=== PATIENT | male | born 1945 | race African-American/Black ===

== ENCOUNTER → 2017-03-22 | Outpatient (CLI) | payer BC | LOC: PAIN 07:50 → CAT 08:23 → PAIN 10:00 | DX: R10.9 Unspecified abdominal pain (principal) ==

== ENCOUNTER 2017-06-22 14:43 | Inpatient (IN) | payer BC, OTHER ==
[~2017-06-22] VITALS: Ht 170.2 cm; Wt 51.1 kg
--- NOTE | ~2017-06-22 | HC ---
[facility] [address] [address] CONSULTATION Name: JUAN LUIS HENAO Max Room #: 438-P ADM IN M.R.#: [id number] Admission: 06/22/17 Attend Phys: Brock Turner MD Discharge: Date of : 49 Report #: [id number] THIS REPORT FOR: //name// CC: [facility] DATE OF SERVICE: 06/23/2017 REFERRING PROVIDER: Brock Turner M.D. REASON FOR CONSULTATION: Abdominal pain. HISTORY OF PRESENT ILLNESS: The patient is a 72-year-old -Mongolian male who is known to me as I have seen him in the clinic multiple times, who has a past medical history that is quite extensive initially undergoing an exploratory laparotomy with a Billroth I procedure, which was converted to a Billroth II procedure approximately 30-40 years ago. This was due to gastric ulcers. Since that time, he has then also undergone a vagotomy with a reverse segment of small bowel due to dumping syndrome and presented to me with ongoing abdominal pain as well as findings of severe gastric polyposis. Upon thorough exam of the patient, I did refer him up to the [facility] where he underwent repeat exploration last year, at which time they converted him to a Naveen-en-Y gastrojejunal anastomosis and resected the reverse segment of small bowel. Since that time, the patient has had chronic abdominal pain with poor p.o. intake and continues with weight loss. The patient was recently seen with concerns of no oral intake for 5 days and feeling palpitations and dizzy and as such was admitted by the hospitalist service yesterday for ongoing care. I am asked to evaluate today secondary to his ongoing abdominal pain. The patient denies any constipation, diarrhea or hematemesis at this time. He has undergone workup with laboratories, which have shown an albumin of 2.2 prior to rehydration, which is consistent with severe protein-calorie malnutrition. He has also shown hypokalemia and hypocalcemia on admission with a creatinine of 1.6 due to acute kidney injury secondary to dehydration. PAST MEDICAL HISTORY: Hypertension, hyperlipidemia, benign prostatic hypertrophy, chronic abdominal pain and multiple gastric surgeries as mentioned in HPI. HOME MEDICATIONS: Flomax, potassium, famotidine, oxycodone, Neurontin and Ultram. ALLERGIES: No known drug allergies. SOCIAL HISTORY: The patient does not utilize tobacco, alcohol or illicit drugs. FAMILY HISTORY: Reviewed and noncontributory. [address] [address] CONSULTATION Name: JUAN LUIS HENAO Room #: 438-P [facility]#: [id number] Admission: 06/22/17 Attend Phys: Brock Turner MD Discharge: Date of : 49 Report #: [id number] REVIEW OF SYSTEMS: GENERAL: The patient denies nocturnal fevers or chills. HEENT: No change in vision or change in hearing. NECK: No swelling or difficulty swallowing. HEART: No chest pain or palpitations. LUNGS: No cough or shortness of breath. ABDOMEN: Chronic abdominal pain with nausea and vomiting. GENITOURINARY: No dysuria or hematuria. ENDOCRINE: No polyuria or polydipsia. HEMATOLOGIC: No history of bleeding or easy bruising. EXTREMITIES: No history weakness or limited range of motion. NEUROLOGIC: No history of syncope or near syncopal episodes. SKIN AND INTEGUMENT: No history of abnormal lesions or moles. PSYCHIATRIC: No history of anxiety or depression. PHYSICAL EXAMINATION: VITAL SIGNS: Temperature 97.8, pulse 53, respirations 18, blood pressure 102/60, he is 5 feet 7 inches tall and weighs 112 pounds. GENERAL: Alert and oriented, in no acute distress. HEENT: Normocephalic, atraumatic. Pupils equal, round and reactive to light. NECK: Supple without lymphadenopathy. Trachea midline. HEART: Regular rate and rhythm. LUNGS: Clear to auscultation bilaterally. ABDOMEN: Soft, nontender, nondistended, positive bowel sounds. His scars are well healed with no palpable herniation. GENITOURINARY: Normal external male genitalia. EXTREMITIES: No clubbing, cyanosis or edema. NEUROLOGIC: Cranial nerves 2-12 are grossly intact. PSYCHIATRIC: Normal mood and affect. SKIN AND INTEGUMENT: No abnormal lesions or moles. LABORATORY AND X-RAY DATA: CBC shows a white blood cell count of 3.9 thousand, hemoglobin 7.4, platelets 136,000. His creatinine today was 1.6. Potassium is up to 4.7. Calcium is up to 8.9. Magnesium is 2.0, phosphorus 4.7. His albumin was 2.2 prior to rehydration, and prealbumin this morning was 23.5. ASSESSMENT AND PLAN: This is a 72-year-old -Mongolian male with chronic ongoing abdominal pain with nausea and vomiting and failure to thrive after undergoing conversion of a Billroth II to a Naveen-en-Y gastrojejunostomy and removal of a reverse segment that was initially placed for dumping syndrome. At this time, the patient has no evidence of surgical pathology; however, I will ask gastroenterology to evaluate for assistance in management moving forward. It is highly likely we will proceed with a repeat CT scan of the abdomen and pelvis to further evaluate the intra-abdominal domain, but I would like to get gastroenterology's opinion prior to that as I have performed CT scans as an [facility] [address] [place] [address] CONSULTATION Name: DAYANA HENAOSaul Santana Room #: 438-P ADM IN M.R.#: [id number] Admission: 06/22/17 Attend Phys: Brock Turner MD Discharge: Date of : 49 Report #: [id number] outpatient several times in the past. I did spend greater than 60 minutes with the patient discussing all of his recent symptoms as well as the proposed management moving forward, and he agrees to proceed as outlined. I sincerely appreciate this consult. I will follow closely and leave any further recommendations in the patient's chart as appropriate. <ELECTRONICALLY SIGNED> By: Leopoldo Martin MD, FACS 06/24/17 [id number] Leopoldo Martin MD, FACS /nt
--- NOTE | ~2017-06-22 | H ---
[facility] [address] [address] HISTORY AND PHYSICAL Name: JUAN LUIS HENAO Room #: 438-P ADM IN M.R.#: [id number] Admission: 06/22/17 Attend Phys: Brock Turner MD Discharge: Date of : 49 Report #: [id number] THIS REPORT FOR: //name// CC: Brock Turner [facility] physician/PCP DATE OF SERVICE: 06/22/2017 CHIEF COMPLAINT: Failure to thrive and abdominal pain. HISTORY OF PRESENT ILLNESS: The patient is a direct admission from Dr. Aquino/Dr. Blair from the surgery clinic. This is a 72-year-old gentleman with greater than 40 year history of longstanding problems related to gastric ulcers, following which he has had multiple surgeries including Naveen-en-Y gastrojejunostomy, antrectomy, vagotomy, reverse segment of small bowel due to dumping syndrome, etc. Unfortunately, the patient continues to have symptoms of abdominal pain as well as extremely poor p.o. intake and cachexia, and is being admitted to initiate total parenteral nutrition. When seen by me today, the patient reports he has got some abdominal pain, which is worse in the last 2-3 weeks, but otherwise has no new symptoms. No chest pain, fevers, chills, nausea, vomiting, diarrhea, dizziness, headaches, skin rashes or other problems. PAST MEDICAL HISTORY: Includes: 1. Hypertension. 2. Hyperlipidemia. 3. Benign prostatic hypertrophy. 4. Chronic abdominal pain. 5. History of multiple gastric surgeries as mentioned above. FAMILY HISTORY: Not pertinent in this elderly gentleman. SOCIAL HISTORY: Lives at home. No drug use reported. REVIEW OF SYSTEMS: Twelve-point review of systems performed, negative except as mentioned in history of present illness. PHYSICAL EXAMINATION: VITAL SIGNS: The patient is afebrile, blood pressure 97/65, on room air. GENERAL: Awake, alert, no acute distress. HEENT: Unremarkable. NECK: No JVD or thyromegaly. CARDIOVASCULAR: S1 and S2 present. Regular. RESPIRATORY: Air entry present bilaterally. ABDOMEN: Soft, tender to palpation in epigastrium, multiple scars noted. No distention. EXTREMITIES: Without edema. [facility] [address] [place] [address] HISTORY AND PHYSICAL Name: JUAN LUIS HENAO Room #: [address] [place] [address] [place] [facility].#: [id number] Admission: 06/22/17 Attend Phys: Brock Turner MD Discharge: Date of : 49 Report #: [id number] NEUROLOGIC: Awake, alert and no obvious focal findings. SKIN: Unremarkable. No rash or lesions. LABORATORY DATA AND INVESTIGATIONS: None at present pending. ASSESSMENT AND PLAN: This is a 72-year-old gentleman with failure to thrive related to severe complications related to his chronic surgical problems and gastric ulcers, being admitted to initiate total parenteral nutrition and for pain control. 1. Severe protein-calorie malnutrition/cachexia. We will place a PICC line and initiate total parenteral nutrition for this patient as well as start him on hydration. 2. Chronic abdominal pain. We will attempt long acting OxyContin and breakthrough oxycodone for this patient. 3. Hypertension. Blood pressures are low normal and he has been taken off his medications as an outpatient. 4. Hyperlipidemia. He has been taken off statin as an outpatient. 5. Benign prostatic hypertrophy. Resume his Flomax. 6. Deep venous thrombosis prophylaxis with low dose Lovenox. We will follow up testing results of his CBC and BMP and make further changes as appropriate. <ELECTRONICALLY SIGNED> By: Brock Turner MD 06/23/17 [id number] Brock Turner MD /nt
[2017-06-22 15:07] VITALS: BP 97/65
[2017-06-22] MEDS ORDERED: TRAMADOL 50 MG50 MG PO (15:17)
[2017-06-22] MEDS ORDERED: ONDANSETRON HCL4 M2 PO (15:18)
[2017-06-22] MEDS ORDERED: FLOMAX0.4 MG PO (15:20)
[2017-06-22 17:01] LABS: HEMATOCRIT 22.7 % (42.0-52.0); HEMOGLOBIN 7.4 gm/dL (14.0-18.0); MCH 28.2 pg (26.0-34.0); MCHC 32.6 g/dL (28.0-37.0); MCV 86.7 fL (80.0-100.0); RBC 2.62 mil/uL (4.50-6.00); RDW 15.3 % (10.5-14.5); WBC 3.9 thou/uL (4.0-11.0)
[2017-06-22 17:19] LABS: ALBUMIN 2.2 g/dL (3.4-5.0); CALCIUM 6.3 mg/dL (8.5-10.1); CREATININE 1.2 mg/dL (0.7-1.3); MAGNESIUM 1.3 mg/dL (1.8-2.4); POTASSIUM 3.1 mmol/L (3.5-5.1); TOTAL BILIRUBIN 0.2 mg/dL (<0.1-1.0); TOTAL PROTEIN 4.1 g/dL (6.4-8.2)
[2017-06-22 20:00] VITALS: BP 115/69
[2017-06-23 04:25] VITALS: BP 102/60
[2017-06-23 06:28] LABS: CREATININE 1.6 mg/dL (0.7-1.3); PHOSPHORUS 4.7 mg/dL (2.5-4.9)
[2017-06-23 06:35] LABS: POTASSIUM 4.7 mmol/L (3.5-5.1)
[2017-06-23 06:38] LABS: CALCIUM 8.9 mg/dL (8.5-10.1)
[2017-06-23 08:00] VITALS: BP 97/62
[2017-06-23 16:00] VITALS: BP 118/63
[2017-06-23 20:09] VITALS: BP 118/89
[2017-06-24 03:12] VITALS: BP 115/67
[2017-06-24 05:13] LABS: HEMATOCRIT 29.9 % (42.0-52.0); MCH 28.4 pg (26.0-34.0); MCHC 33.8 g/dL (28.0-37.0); RBC 3.55 mil/uL (4.50-6.00); RDW 15.1 % (10.5-14.5)
[2017-06-24 05:17] LABS: HEMOGLOBIN 10.1 gm/dL (14.0-18.0)
[2017-06-24 05:32] LABS: CALCIUM 9.3 mg/dL (8.5-10.1); CREATININE 1.4 mg/dL (0.7-1.3); MAGNESIUM 1.9 mg/dL (1.8-2.4); PHOSPHORUS 3.8 mg/dL (2.5-4.9)
[2017-06-24 08:41] VITALS: BP 111/69
[2017-06-24 16:32] VITALS: BP 111/71
[2017-06-24 19:19] VITALS: BP 115/63
[2017-06-25 05:01] LABS: CALCIUM 9.2 mg/dL (8.5-10.1); CREATININE 1.3 mg/dL (0.7-1.3); PHOSPHORUS 3.9 mg/dL (2.5-4.9); POTASSIUM 4.2 mmol/L (3.5-5.1)
[2017-06-25 05:40] VITALS: BP 110/66
[2017-06-25 08:00] VITALS: BP 104/63
[2017-06-25 08:32] VITALS: BP 104/63
[2017-06-25 13:08] LABS: URINE BILIRUBIN NEGATIVE (Negative); URINE BLOOD NEGATIVE (Negative); URINE COLOR YELLOW; URINE GLUCOSE-RANDOM* NEGATIVE (Negative); URINE KETONES NEGATIVE (Negative); URINE NITRITE NEGATIVE (Negative); URINE PROTEIN (DIPSTICK) NEGATIVE (Negative); URINE UROBILINOGEN 0.2 E.U./dl (0.2-1.0)
[2017-06-25 16:29] VITALS: BP 98/64
[2017-06-25 19:51] VITALS: BP 102/66
[2017-06-26 03:47] VITALS: BP 92/61
[2017-06-26 06:21] LABS: ABSOLUTE NEUTROPHILS 3.7 thou/uL (1.4-8.2); BASOPHILS 0.7 % (0.0-2.0); EOSINOPHILS 1.9 % (0.0-3.0); HEMATOCRIT 31.7 % (42.0-52.0); HEMOGLOBIN 10.9 gm/dL (14.0-18.0); LYMPHOCYTES 24.9 % (24.0-44.0); MCH 28.8 pg (26.0-34.0); MCHC 34.3 g/dL (28.0-37.0); MCV 83.9 fL (80.0-100.0); MONOCYTES 9.5 % (1.0-8.0); PLATELET COUNT 195 thou/uL (150-400); RBC 3.77 mil/uL (4.50-6.00); RDW 15.3 % (10.5-14.5); WBC 5.8 thou/uL (4.0-11.0)
[2017-06-26 06:22] LABS: MANUAL DIFF NO
[2017-06-26 06:42] LABS: CALCIUM 8.9 mg/dL (8.5-10.1); CREATININE 1.4 mg/dL (0.7-1.3); MAGNESIUM 2.3 mg/dL (1.8-2.4); PHOSPHORUS 4.2 mg/dL (2.5-4.9); POTASSIUM 4.4 mmol/L (3.5-5.1)
[2017-06-26 08:00] VITALS: BP 113/75; BP 92/61
[2017-06-26 16:00] VITALS: BP 104/71
[2017-06-26 20:55] VITALS: BP 112/73
[2017-06-26 23:06] LABS: PSA TOTAL 0.7 ng/mL (0.0-4.0)
[2017-06-27 03:48] LABS: ABSOLUTE NEUTROPHILS 4.2 thou/uL (1.4-8.2); BASOPHILS 0.8 % (0.0-2.0); HEMATOCRIT 30.8 % (42.0-52.0); HEMOGLOBIN 10.4 gm/dL (14.0-18.0); MANUAL DIFF NO; MCH 28.5 pg (26.0-34.0); MCHC 33.9 g/dL (28.0-37.0); MCV 84.1 fL (80.0-100.0); MONOCYTES 9.2 % (1.0-8.0); PLATELET COUNT 183 thou/uL (150-400); RBC 3.66 mil/uL (4.50-6.00); RDW 15.5 % (10.5-14.5); WBC 6.5 thou/uL (4.0-11.0)
[2017-06-27 04:30] VITALS: BP 92/63
[2017-06-27 04:35] LABS: ALBUMIN 2.9 g/dL (3.4-5.0); CALCIUM 8.7 mg/dL (8.5-10.1); CREATININE 1.4 mg/dL (0.7-1.3); MAGNESIUM 2.1 mg/dL (1.8-2.4); POTASSIUM 4.6 mmol/L (3.5-5.1); TOTAL BILIRUBIN 0.2 mg/dL (<0.1-1.0); TOTAL PROTEIN 5.6 g/dL (6.4-8.2)
[2017-06-27 08:00] VITALS: BP 92/63
[2017-06-27 08:40] VITALS: BP 94/52
[2017-06-27 16:28] VITALS: BP 93/57
[2017-06-27 21:24] VITALS: BP 93/51
[2017-06-28 04:40] VITALS: BP 95/57
[2017-06-28 05:10] LABS: FREE PSA 0.29 ng/mL; FREE PSA RATIO 41.4 % (())
[2017-06-28 08:00] VITALS: BP 101/55
[2017-06-28] MEDS ORDERED: OXYCONTIN15 MG PO (12:50)
[2017-06-28] MEDS ORDERED: ENOXAPARIN30 MG/0.1 SUBQ (12:50)
[2017-06-28] MEDS ORDERED: TRANSDERM-SCO1 PATCH TRANSDERM (12:50)
[2017-06-28] MEDS ORDERED: AMITRIPTYLINE H25 M2 PO (12:50)
[2017-06-28] MEDS ORDERED: PANTOPRAZOLE SO40 M1 PO (12:50)
[2017-06-28] MEDS ORDERED: OXYCODONE HCL 55 MG PO (12:50)
[2017-06-28 16:00] VITALS: BP 91/59
[2017-06-28 19:35] VITALS: BP 89/52
[2017-06-29 04:35] VITALS: BP 92/57
[2017-06-29 08:00] VITALS: BP 98/50
[2017-06-29 15:55] VITALS: BP 90/58
== END 2017-06-29 18:42 | DRG 682 ==
LOC: 4S 14:43
PROVIDERS: Hospitalist; Internal Medicine; Internal Medicine Endocrinology, Diabetes & Metabolism; Surgery
PROC: 0DJ08ZZ Inspection of Upper Intestinal Tract, Via Natural or Artificial Opening Endoscopic (ICD-10-PCS; principal; 2017-06-26)
DX: N17.9 Acute kidney failure, unspecified (principal); E43 Unspecified severe protein-calorie malnutrition; K85.90 Acute pancreatitis without necrosis or infection, unspecified; Z68.1 Body mass index [BMI] 19.9 or less, adult; R62.7 Adult failure to thrive; I10 Essential (primary) hypertension; E78.5 Hyperlipidemia, unspecified; N40.0 Benign prostatic hyperplasia without lower urinary tract symptoms; G89.29 Other chronic pain; N40.2 Nodular prostate without lower urinary tract symptoms; D63.8 Anemia in other chronic diseases classified elsewhere; Z87.19 Personal history of other diseases of the digestive system
CPT/HCPCS: 10102; 27000; 62110; 62900; 70005

== ENCOUNTER 2017-09-09 14:23 | Emergency (ER) | payer BC, OTHER ==
[~2017-09-09] VITALS: Ht 170.2 cm; Wt 54.4 kg
[~2017-09-09 14:23] MED LIST: AMITRIPTYLINE H25 M2 PO; ENOXAPARIN30 MG/0.1 SUBQ; FLOMAX0.4 MG PO; ONDANSETRON HCL4 M2 PO; OXYCODONE HCL 55 MG PO; OXYCONTIN15 MG PO; PANTOPRAZOLE SO40 M1 PO; TRAMADOL 50 MG50 MG PO; TRANSDERM-SCO1 PATCH TRANSDERM
[2017-09-09 15:19] LABS: URINE BLOOD NEGATIVE (Negative); URINE COLOR YELLOW; URINE GLUCOSE-RANDOM* NEGATIVE (Negative); URINE KETONES TRACE (Negative); URINE NITRITE NEGATIVE (Negative); URINE PROTEIN (DIPSTICK) 1+ (Negative); URINE SPECIFIC GRAVITY 1.015 (1.003-1.035); URINE UROBILINOGEN 0.2 E.U./dl (0.2-1.0)
[2017-09-09 15:22] LABS: URINE BILIRUBIN NEGATIVE (Negative)
[2017-09-09 15:31] LABS: BASOPHILS 0.7 % (0.0-2.0); EOSINOPHILS 0.9 % (0.0-3.0); HEMATOCRIT 32.6 % (42.0-52.0); HEMOGLOBIN 10.7 gm/dL (14.0-18.0); MANUAL DIFF NO; MCH 27.8 pg (26.0-34.0); MCHC 32.9 g/dL (28.0-37.0); MCV 84.6 fL (80.0-100.0); MONOCYTES 4.6 % (1.0-8.0); PLATELET COUNT 274 thou/uL (150-400); POLYS 78.8 % (36.0-66.0); RBC 3.85 mil/uL (4.50-6.00); RDW 14.1 % (10.5-14.5); WBC 7.6 thou/uL (4.0-11.0)
[2017-09-09 15:32] LABS: BACTERIA 1-9 Few /HPF (None Seen); CASTS None Seen /LPF (None Seen); CRYSTALS None Seen /LPF (None Seen); SQUAMOUS None Seen /LPF (0-3); URINE RBC None Seen /HPF (0-2); URINE WBC 0-5 Rare /HPF (0-5)
[2017-09-09 15:40] LABS: CALCIUM 9.1 mg/dL (8.5-10.1); CREATININE 1.5 mg/dL (0.7-1.3); POTASSIUM 4.2 mmol/L (3.5-5.1)
[2017-09-09 15:46] LABS: ALBUMIN 3.2 g/dL (3.4-5.0); TOTAL BILIRUBIN 0.3 mg/dL (<0.1-1.0); TOTAL PROTEIN 6.3 g/dL (6.4-8.2)
[2017-09-09] MEDS ORDERED: PERCOCET 5-3251 EACH PO (16:40)
== END 2017-09-09 17:07 | disposition home or self-care (01) ==
LOC: ER 14:23
PROVIDERS: Nurse Practitioner Family
DX: G89.29 Other chronic pain (principal); R10.13 Epigastric pain; K21.9 Gastro-esophageal reflux disease without esophagitis

== ENCOUNTER 2018-02-02 12:50 | Emergency (ER) | payer OTHER ==
[~2018-02-02] VITALS: Ht 170.2 cm; Wt 58.5 kg
[~2018-02-02 12:50] MED LIST changes: +PERCOCET 5-3251 EACH PO
[2018-02-02] MEDS ORDERED: MS CONTIN15 MG PO (13:36)
[2018-02-02] MEDS ORDERED: NAMENDA 10 MG T10 MG PO (13:37)
[2018-02-02] MEDS ORDERED: LYRICA 50 MG50 MG PO (13:37)
[2018-02-02] MEDS ORDERED: ZYRTEC10 MG PO (13:37)
[2018-02-02] MEDS ORDERED: CARAFATE 1 GM TA1 G1 PO (13:38)
[2018-02-02] MEDS ORDERED: ARICEPT 5 MG TAB5 MG PO (13:38)
[2018-02-02] MEDS ORDERED: VIAGRA100 MG PO (13:38)
[2018-02-02] MEDS ORDERED: TRANSDERM-SCOP1 EACH TOP (13:39)
[2018-02-02 13:40] LABS: URINE BILIRUBIN NEGATIVE (Negative); URINE BLOOD NEGATIVE (Negative); URINE CLARITY CLEAR; URINE COLOR YELLOW; URINE GLUCOSE-RANDOM* NEGATIVE (Negative); URINE KETONES NEGATIVE (Negative); URINE LEUKOCYTES-REFLEX NEGATIVE (Negative); URINE NITRITE-REFLEX NEGATIVE (Negative); URINE PROTEIN (DIPSTICK) NEGATIVE (Negative); URINE SPECIFIC GRAVITY 1.015 (1.005-1.035); URINE UROBILINOGEN 0.2 E.U./dl (0.2-1.0)
[2018-02-02] MEDS ORDERED: VITAMIN D2000 UNIT PO (13:40)
[2018-02-02] MEDS ORDERED: FISH OIL 1,001000 M2 PO (13:40)
[2018-02-02 14:30] LABS: ABSOLUTE NEUTROPHILS 4.4 thou/uL (1.4-8.2); BASOPHILS 0.5 % (0.0-2.0); EOSINOPHILS 0.9 % (0.0-3.0); HEMATOCRIT 32.3 % (42.0-52.0); HEMOGLOBIN 10.7 gm/dL (14.0-18.0); LYMPHOCYTES 17.7 % (24.0-44.0); MCH 27.8 pg (26.0-34.0); MCHC 33.2 g/dL (28.0-37.0); MCV 83.9 fL (80.0-100.0); MONOCYTES 6.5 % (1.0-8.0); PLATELET COUNT 220 thou/uL (150-400); POLYS 74.4 % (36.0-66.0); RBC 3.86 mil/uL (4.50-6.00); RDW 14.8 % (10.5-14.5); WBC 5.9 thou/uL (4.0-11.0)
[2018-02-02 14:47] LABS: CALCIUM 8.6 mg/dL (8.5-10.1); CREATININE 1.4 mg/dL (0.7-1.3); POTASSIUM 4.2 mmol/L (3.5-5.1)
[2018-02-02 14:52] LABS: ALBUMIN 2.7 g/dL (3.4-5.0); TOTAL BILIRUBIN 0.2 mg/dL (<0.1-1.0); TOTAL PROTEIN 5.2 g/dL (6.4-8.2)
== END 2018-02-02 16:17 | disposition home or self-care (01) ==
LOC: ER 12:50
PROVIDERS: Emergency Medicine
DX: R19.7 Diarrhea, unspecified (principal); R10.9 Unspecified abdominal pain; K21.9 Gastro-esophageal reflux disease without esophagitis

== ENCOUNTER → 2018-10-19 | Outpatient (CLI) | payer OTHER ==
[~2018-10-19] MED LIST changes: +ARICEPT 5 MG TAB5 MG PO; +CARAFATE 1 GM TA1 G1 PO; +FISH OIL 1,001000 M2 PO; +LYRICA 50 MG50 MG PO; +MS CONTIN15 MG PO; +NAMENDA 10 MG T10 MG PO; +TRANSDERM-SCOP1 EACH TOP; +VIAGRA100 MG PO; +VITAMIN D2000 UNIT PO; +ZYRTEC10 MG PO
[2018-10-19 08:00] LABS: CREATININE 1.7 mg/dL (0.7-1.3)
== END ==
LOC: CAT 10-04 11:40
PROVIDERS: Surgery
DX: R11.2 Nausea with vomiting, unspecified (principal); R10.9 Unspecified abdominal pain; Z90.49 Acquired absence of other specified parts of digestive tract

== ENCOUNTER → 2019-06-20 | Outpatient (CLI) | payer BC, OTHER ==
[2019-06-20 10:47] LABS: CREATININE 1.7 mg/dL (0.7-1.3)
== END ==
LOC: CAT 09:13
PROVIDERS: Surgery
DX: R10.84 Generalized abdominal pain (principal); N40.0 Benign prostatic hyperplasia without lower urinary tract symptoms